=== PATIENT | male | born 1980 | race Caucasian/White ===

== ENCOUNTER 2021-06-10 10:20 | Emergency (ER) | payer MEDICAID ==
[~2021-06-10] VITALS: Ht 182.9 cm; Wt 77.1 kg
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
--- NOTE | 2021-06-10 10:32 | NUR ---
SEEN AND EXAMINED BY DR BONILLA
--- NOTE | 2021-06-10 10:40 | NUR ---
PT TAKEN TO CT
--- NOTE | 2021-06-10 10:49 | NUR ---
PT RETURNED FROM CT
[2021-06-10 11:27] VITALS: BP 117/70
[2021-06-10] MEDS ORDERED: LORAZEPAM 1 MG TABLET PO ONE (11:30)
[2021-06-10] MEDS ORDERED: LORAZEPAM 1 MG TABLET ONE (11:30)
--- NOTE | 2021-06-10 11:50 | NUR ---
Dr Stroud in to update pt and now patient is making suicidal statements "I want to ". Medical Clearance for psych transfer initiated
--- NOTE | 2021-06-10 12:08 | NUR ---
COVID SPECIMEN OBTAINED AND SENT TO LAB.
--- NOTE | 2021-06-10 12:34 | NUR ---
ER PHLEB AT BEDSIDE FOR BLOOD DRAW.
[2021-06-10 12:58] LABS: BASOPHILS # (AUTO) 0.1 K/uL (0.0-0.2); BASOPHILS % (AUTO) 0.9 % (0.0-2.0); EOSINOPHILS % (AUTO) 0.5 % (0.0-6.0); HEMATOCRIT 43 % (39-51); LYMPHOCYTES # (AUTO) 1.5 K/uL (0.8-4.8); LYMPHOCYTES % (AUTO) 21.5 % (20.0-44.0); MEAN CORPUSCULAR HGB CONC 35 g/dl (31.0-36.0); MEAN CORPUSCULAR VOLUME 87 fL (80-96); MONOCYTES # (AUTO) 0.6 K/uL (0.1-1.30); MONOCYTES % (AUTO) 8.6 % (2.0-12.0); NEUTROPHILS # (AUTO) 4.9 K/uL (1.8-8.9); NEUTROPHILS % (AUTO) 68.5 % (43.0-81.0); PLATELET COUNT (AUTO) 272 K/uL (150-450); RED BLOOD CELL COUNT(AUTO) 4.96 MIL/uL (4.5-6.0); WHITE BLOOD COUNT (AUTO) 7.2 K/uL (4.3-11.0)
[2021-06-10 13:17] LABS: BILIRUBIN,URINE NEGATIVE (NEGATIVE); COLOR,URINE YELLOW (YELLOW); LEUKOCYTE ESTERASE ,URINE NEGATIVE (NEGATIVE); NITRITE, URINE NEGATIVE (NEGATIVE); PH,URINE 6.5 (5.0-8.0); PROTEIN,URINE NEGATIVE (NEGATIVE); UGLUCOSE NEGATIVE (NEGATIVE)
[2021-06-10 13:38] LABS: CALCIUM, SERUM 8.8 mg/dL (8.5-10.1); CARBON DIOXIDE 26 mmol/L (21-32); CHLORIDE 102 mmol/L (98-107); CREATININE 0.8 mg/dL (0.6-1.3); GLUCOSE 93 mg/dL (74-106); SODIUM SERUM 138 mmol/L (136-145); UREA NITROGEN, BLOOD 6 mg/dL (7-18)
[2021-06-10 13:42] LABS: ALANINE AMINOTRANSFERASE 23 U/L (12-78); ALBUMIN 3.6 g/dL (3.4-5.0); ALKALINE PHOSPHATASE 85 U/L (46-116); ASPARTATE AMINOTRANSFERASE 17 U/L (15-37); BILIRUBIN,DIRECT 0.2 mg/dL (0.0-0.2); BILIRUBIN,TOTAL 0.4 mg/dL (0.2-1.0); TOTAL PROTEIN, SERUM 7.2 g/dL (6.4-8.2)
[2021-06-10 13:43] LABS: ACETAMINOPHEN 0 ug/ml (10-30); ALCOHOL, BLOOD < 3 mg/dL (0-0)
[2021-06-10 14:24] LABS: BACTERIA,URINE None seen /HPF (None Seen); RBC,URINE NONE SEEN /HPF (0-2); SQUAMOUS EPITHELIAL CELL,UR Rare /HPF (None Seen); WBC,URINE 0-2 /HPF (0-3)
[2021-06-10] MEDS ORDERED: TDAP [DIPH/PERTUSSIS/TET] 0.5 ML VIAL IM ONE (15:30)
--- NOTE | 2021-06-10 16:05 | NUR ---
FAXED CLINICALS TO [facility] - [place] INTAKE.
--- NOTE | 2021-06-11 09:41 | NUR ---
CALLED SO EILEEN MEDRANO FOR PT UPDATE AND WAS NOTIFIED THAT PT IS STILL AWAITING FEEDBACK FROM CHARGE NURSE PER ART
--- NOTE | 2021-06-11 22:22 | NUR ---
EMMANUEL CARVAJAL AT TRANSFER CENTER; PT GOT ACCEPTED AT [facility] BY DR VALLADARES, # FOR REPORT: [phone] EX: [phone] ASK FOR CYNTHIA IJ
--- NOTE | 2021-06-11 23:09 | NUR ---
REOPRT GIVEN TO AMINA
--- NOTE | 2021-06-11 23:10 | NUR ---
PT WAS TRANSFERRED TO [facility] IN STABLE CONDITION. ALL BELONGINGS WERE PICKED UP
== END 2021-06-11 23:10 ==
LOC: ER 10:25
DX: S02.2XXA Fracture of nasal bones, initial encounter for closed fracture (principal); S02.40FA Zygomatic fracture, left side, initial encounter for closed fracture; S02.40EA Zygomatic fracture, right side, initial encounter for closed fracture; Y09 Assault by unspecified means; Y92.89 Other specified places as the place of occurrence of the external cause; F41.9 Anxiety disorder, unspecified; F13.20 Sedative, hypnotic or anxiolytic dependence, uncomplicated; R45.851 Suicidal ideations; F17.210 Nicotine dependence, cigarettes, uncomplicated; Z20.822 Contact with and (suspected) exposure to COVID-19
CPT/HCPCS: 36415; 70450; 70486; 71045; 80048; 80076; 80143; 80307; 80320; 81001; 85025; 87426; 99285; 99406; C9803; G0480